=== PATIENT | female | born 1960 | race Caucasian/White ===

== ENCOUNTER 2021-04-30 10:47 | Emergency (ER) | payer BC ==
--- NOTE | 2021-04-30 13:59 | EDM.PDOC ---
ED HPI GENERAL MEDICAL PROBLEM - General Chief Complaint: Respiratory Problem Stated Complaint: UNABLE TO EAT OR DRINK,COVID POSITIVE Time Seen by Provider: 04/30/21 13:45 Source of Information: Reports: Patient, RN Notes Reviewed History Limitations: Reports: No Limitations - History of Present Illness INITIAL COMMENTS - FREE TEXT/NARRATIVE: 60-year-old female presents emergency department day complaint of shortness of breath, she is positive for Covid diagnosed on she states she started having symptoms on the so today is about day 9 or 10. Her biggest thing is the shortness of breath she has fevers body aches fatigue and weakness she is unvaccinated - Related Data Allergies Allergy/AdvReac Type Severity Reaction Status Date / Time Sulfa (Sulfonamide Allergy Severe Hives Verified 04/30/21 12:51 Antibiotics) latex Allergy Intermediate Itching Verified 04/30/21 12:51 Home Meds: Home Meds Lisinopril 10 mg PO DAILY 02/23/14 [History] Solifenacin [Vesicare] 5 mg PO DAILY 02/23/14 [History] Calcium Carbonate/Vitamin D3 [Calcium 600 + Vit D 200] 1 tab PO BID 06/27/15 [ History] Escitalopram [Lexapro] 10 mg PO DAILY 06/27/15 [History] Gabapentin [Neurontin] 300 mg PO TID 06/27/15 [History] Multivitamin [Multi-Vitamin Daily] 1 tab PO DAILY 06/27/15 [History] Neomycin/Polymyxin B [Neomy-Polymyxin B 40 MG/ML] 3 drop EARBOTH TID PRN 06/27/15 [History] Triamcinolone Acetonide [Triamcinolone Acetonide 0.1% Crm] 1 film TOP BID PRN 06/27/15 [History] Cyanocobalamin (Vitamin B-12) [B-12] 1,000 mcg PO DAILY 04/30/21 [History] Vitamin B Complex [B Complex] 1 each PO DAILY 04/30/21 [History] Past Medical History HEENT History: Reports: Cataract, Impaired Vision, Other (See Below) Other HEENT History: itchy left ear @ times Cardiovascular History: Reports: Hypertension Gastrointestinal History: Reports: Cholelithiasis, GERD, Hemorrhoids, Helicobacter Pylori Genitourinary History: Reports: Urinary Incontinence 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: Musculoskeletal History: Reports: Neck Pain, Chronic Neurological History: Reports: Other (See Below) Other Neuro History: neuropathy-left leg Psychiatric History: Reports: Depression Endocrine/Metabolic History: Reports: Obesity/BMI 30+ Hematologic History: Reports: Iron Deficiency - Infectious Disease History Infectious Disease History: Reports: Chicken Pox, Helicobacter Pylori, Novel Coronavirus - Past Surgical History Head Surgeries/Procedures: Reports: None HEENT Surgical History: Reports: LASIK, Oral Surgery Cardiovascular Surgical History: Reports: None GI Surgical History: Reports: Cholecystectomy, Colonoscopy, Hernia, Abdominal Female Surgical History: Reports: Breast Reduction, Section, Tubal Ligation Endocrine Surgical History: Reports: None Neurological Surgical History: Reports: None Musculoskeletal Surgical History: Reports: None Dermatological Surgical History: Reports: None Social & Family History - Family History HEENT: Reports: Cataract Cardiac: Reports: CAD, High Cholesterol, Hypertension GI: Reports: Cholelithiasis OBGYN: Reports: Ectopic , Psychiatric: Reports: Depression Endocrine/Metabolic: Reports: Diabetes, Type I Oncologic: Reports: Lung - Tobacco Use Tobacco Use Status *Q: Never Tobacco User - Caffeine Use Caffeine Use: Reports: None - Recreational Drug Use Recreational Drug Use: No ED ROS GENERAL - Review of Systems Review Of Systems: See Below Constitutional: Reports: Fever, Chills, Weakness, Fatigue HEENT: Reports: No Symptoms Respiratory: Reports: Shortness of Breath, Cough Cardiovascular: Reports: Dyspnea on Exertion GI/Abdominal: Reports: No Symptoms ED EXAM, GENERAL - Physical Exam Exam: See Below Exam Limited By: No Limitations General Appearance: Alert, WD/WN, No Apparent Distress Respiratory/Chest: No Respiratory Distress, Lungs Clear, Normal Breath Sounds, No Accessory Muscle Use, Chest Non-Tender Cardiovascular: Regular Rate, Rhythm, No Murmur Course - Vital Signs Last Recorded V/S: Last Vital Signs Temp 97.8 F 04/30/21 12:48 Pulse 66 04/30/21 12:48 Resp 16 04/30/21 12:48 BP 136/63 04/30/21 12:48 Pulse Ox 99 04/30/21 12:48 - Orders/Labs/Meds Orders: Active Orders 24 hr Category Date Time Status Isolation [COMM] Routine Oth 04/30/21 12:21 Ordered Departure - Departure Time of Disposition: 13:59 Disposition: Home, Self-Care 01 Condition: Fair Clinical Impression: COVID-19 - Discharge Information Instructions: 10 Things You Can Do to Manage Your COVID-19 Symptoms at Home - [facility] (12/22/2020) Referrals: Huey Beltran MD [Primary Care Provider] - Additional Instructions: Continue with symptomatic care, please followup with your primary care provider in 7-10 days if not better, please call return to the emergency department with worsening of symptoms. Sepsis Event Note (ED) - Evaluation Sepsis Screening Result: No Definite Risk - Focused Exam Vital Signs: Vital Signs Temp Pulse Resp BP Pulse Ox 04/30/21 12:48 97.8 F 66 16 136/63 99 - My Orders Last 24 Hours: My Active Orders 04/30/21 12:21 Isolation [COMM] Routine - Assessment/Plan Last 24 Hours: My Active Orders 04/30/21 12:21 Isolation [COMM] Routine Plan: Assessment Acuity = acute Site and laterality = viral syndrome Etiology = COVID-19 Manifestations = dyspnea Location of injury = Home Lab values = none Plan Because she is day 7 she is still a candidate for monoclonal antibody therapy which she is interested in, therefore the order was placed have her follow-up with primary care in 7 to 10 days if not better return to ED with worsening of symptoms This note was dictated using [employer] voice recognition software please call with any questions on syntax or grammar.
[2021-04-30] MEDS ORDERED: Acetaminophen 325 MG Tab PO PRN (15:00)
[2021-04-30] MEDS ORDERED: methylPREDNISolone Sodium Succinate 125 MG/2 ML SDV IM PRN (15:00)
[2021-04-30] MEDS ORDERED: EPINEPHrine 1 MG/ML SDV IM PRN (15:00)
[2021-04-30] MEDS ORDERED: diphenhydrAMINE 50 MG/ML SDV IM PRN (15:00)
[2021-04-30] MEDS ORDERED: Ondansetron 4 MG Tab.DIS PO ONE (15:03)
[2021-04-30 16:03] VITALS: BP 118/68; PULSE 71
== END 2021-04-30 16:07 | disposition home or self-care (01) ==
LOC: JP.ED 10:47
DX: U07.1 COVID-19 (principal); I10 Essential (primary) hypertension; E66.9 Obesity, unspecified; Z68.30 Body mass index [BMI] 30.0-30.9, adult; Z88.2 Allergy status to sulfonamides; Z91.040 Latex allergy status; Z79.899 Other long term (current) drug therapy
CPT/HCPCS: 99284; A9270; M0243; Q0243

== ENCOUNTER 2023-03-24 16:44 | Emergency (ER) | payer BC ==
[2023-03-24 17:11] VITALS: BP 186/73; PULSE 76
[2023-03-24] MEDS ORDERED: Sodium Chloride 0.9% 10 ML Syringe FLUSH PRN (17:25)
[2023-03-24] MEDS ORDERED: Sodium Chloride 0.9% 1,000 ML IV STA (17:25)
[2023-03-24] MEDS ORDERED: Ketorolac 30 MG/ML SDV IVPUSH ONE (17:26)
[2023-03-24] MEDS ORDERED: Ondansetron 4 MG/2 ML SDV IVPUSH ONE (17:26)
[2023-03-24 17:38] LABS: BASOPHILS ABSOLUTE AUTO 0.03 K/uL (0.00-0.10); BASOPHILS PERCENT AUTO 0.2 % (0.1-1.3); EOSINOPHILS ABSOLUTE AUTO 0.02 K/uL (0.00-0.40); EOSINOPHILS PERCENT AUTO 0.2 % (0.0-5.4); HEMATOCRIT 40.2 % (34.3-46.0); HEMOGLOBIN 12.5 g/dL (11.2-15.5); IMMATURE GRAN ABSOLUTE AUTO 0.04 K/uL (0.00-0.23); IMMATURE GRAN PERCENT AUTO 0.3 % (0.0-0.7); LYMPHOCYTES ABSOLUTE AUTO 0.82 K/uL (0.8-3.3); LYMPHOCYTES PERCENT AUTO 6.4 % (11.4-47.7); MEAN CORPUSCULAR HEMOGLOBIN 25.8 pg (31.6-35.5); MEAN CORPUSCULAR HGB CONC 31.1 g/dL (31.6-35.5); MEAN CORPUSCULAR VOLUME 83.1 fL (81.4-99.0); MONOCYTES ABSOLUTE AUTO 0.59 K/uL (0.20-0.90); MONOCYTES PERCENT AUTO 4.6 % (3.3-12.6); NEUTROPHILS ABSOLUTE AUTO 11.25 K/uL (1.0-7.6); NEUTROPHILS PERCENT AUTO 88.3 % (40.0-78.1); PLATELET COUNT,PLT 234 K/uL (130-375); RED BLOOD CELL COUNT 4.84 M/uL (3.77-5.24); WHITE BLOOD CELL COUNT,WBC 12.8 K/uL (3.2-11.0)
[2023-03-24] MEDS ORDERED: Iopamidol 612 MG/ML 100 ML Bottle IV PRN (17:46)
[2023-03-24] MEDS ORDERED: Sodium Chloride 0.9% 10 ML Syringe FLUSH ONE (17:46)
[2023-03-24 18:00] LABS: A/G RATIO 0.9 (1.2-2.2); ALANINE AMINOTRANSFERASE,ALT 8 U/L (12-78); ALBUMIN 3.3 g/dL (3.4-5.0); ALKALINE PHOSPHATASE 117 U/L (46-116); ASPARTATE AMNIOTRANSFERASE,AST 14 U/L (15-37); BILIRUBIN TOTAL 0.3 mg/dL (0.2-1.0); BLOOD UREA NITROGEN,BUN 21 mg/dL (7-18); CALCIUM 8.7 mg/dL (8.5-10.1); CARBON DIOXIDE,CO2 27 mmol/L (21-32); CHLORIDE,CL 106 mmol/L (100-108); CREATININE 0.9 mg/dL (0.6-1.0); EST CRCL DRUG DOSING (CG) 52.24 mL/min; ESTIMATED GFR 71 mL/min (>60); GLUCOSE RANDOM 140 mg/dL (74-106); POTASSIUM,K 3.9 mmol/L (3.6-5.2); SODIUM,NA 141 mmol/L (140-148)
[2023-03-24] MEDS ORDERED: Sodium Chloride 0.9% 50 ML IV SCH (18:00)
[2023-03-24 18:30] LABS: APPEARANCE,URINE SLIGHTLY CLOUDY (CLEAR); BILIRUBIN,URINE NEGATIVE (NEGATIVE); COLOR,URINE YELLOW (YELLOW); GLUCOSE,URINE NEGATIVE (NEGATIVE); KETONES,URINE 40 mg/dL (NEGATIVE); LEUKOCYTE ESTERASE,URINE NEGATIVE (NEGATIVE); NITRITE,URINE NEGATIVE (NEGATIVE); OCCULT BLOOD,URINE MODERATE (NEGATIVE); PROTEIN,URINE TRACE mg/dL (NEGATIVE); UROBILINOGEN,URINE 0.2 EU/dL (0.2-1.0)
[2023-03-24 18:37] LABS: BACTERIA,URINE MODERATE; EPITHELIAL CELLS,URINE MODERATE; WBC,URINE 0-5 (0-5)
[2023-03-24 18:38] LABS: AMORPHOUS SEDIMENT,URINE NOT SEEN; MUCUS,URINE FEW
== END 2023-03-24 21:04 | disposition home or self-care (01) ==
LOC: JP.ED 16:44
DX: N13.2 Hydronephrosis with renal and ureteral calculous obstruction (principal); I10 Essential (primary) hypertension; E66.9 Obesity, unspecified; Z68.30 Body mass index [BMI] 30.0-30.9, adult; Z86.16 Personal history of COVID-19; Z88.0 Allergy status to penicillin; Z91.040 Latex allergy status; Z79.899 Other long term (current) drug therapy
CPT/HCPCS: 36415; 74177; 80053; 81001; 83605; 83690; 85025; 96361; 96374; 96375; 99284; J1885; J2405; J3490; J7030; Q9967